=== PATIENT | female | born 1975 | race African-American/Black ===

== ENCOUNTER 2019-05-25 01:11 | Inpatient (IN) ==
[2019-05-25] MEDS ORDERED: MORPHINE IV ONE ×2 (01:26→04:17)
[2019-05-25 03:01] LABS: BASO# 0.01 X1000 (0.0-0.2); BASO% 0.1 % (0.0-0.8); EOS# 0.09 X1000 (0.0-0.7); EOS% 1.1 % (0.0-10.0); HEMATOCRIT 23.2 % (37.0-47.0); HEMOGLOBIN 7.1 g/dL (12.0-16.0); IMM GRAN# 0.02 X1000 (0.0-0.04); IMM GRAN% 0.2 % (0.0-0.5); LYMPH# 1.47 X1000 (1.2-3.4); LYMPH% 17.3 % (20.5-51.1); MCHC 30.6 g/dL (33-37); MCV 68.6 FL (81-99); MONO# 0.81 X1000 (0.11-0.59); MONO% 9.5 % (1.7-9.3); NEUT# 6.09 X1000 (1.4-6.5); NEUT% 71.8 % (42.2-75.2); PLT 412 X1000 (130-400); RBC 3.38 XMIL (4.2-5.4); RDW 18.3 % (11.5-14.5); WBC 8.49 X1000 (4.8-10.8)
[2019-05-25 03:22] LABS: AGAP 14; ALB/GLOB RATIO 0.7; ALBUMIN 3.2 g/dL (3.5-5.0); ALKALINE PHOSPHATASE 67 U/L (32-104); BUN 8 mg/dL (8-22); CALCIUM 8.8 mg/dL (8.8-10.2); CHLORIDE 103 mmol/L (98-107); COSMO 276; CREATININE 0.6 mg/dL (0.5-0.9); ESTIMATED GFR > 60; GLUCOSE 97 mg/dL (70-104); GOT 15 U/L (10-30); GPT 10 U/L (10-36); POTASSIUM 3.4 mmol/L (3.5-5.1); SODIUM 139 mmol/L (136-145); TCO2 22 mmol/L (25-35); TOTAL BILIRUBIN 0.32 mg/dL (0.20-1.00); TOTAL PROTEIN 7.5 g/dL (6.3-8.3)
[2019-05-25] MEDS ORDERED: ZOFRAN IV ONE (04:17)
--- NOTE | 2019-05-25 06:49 | PROVIDER DOCUMENTATION ---
This chart was entered by Mckayla Ohcoa Scribe, acting as scribe for Robert Lemon MD. HPI-General Adult - General Chief Complaint: Extremity Pain Stated Complaint: leg pain Time Seen by Provider: 05/25/19 01:16 Source: patient Allergies/Adverse Reactions: Patient Allergies Allergy/AdvReac Type Severity Reaction Status Date / Time acetaminophen [From Tylenol] Allergy ITCHING Verified 11/09/17 21:54 Home Medications: Home Medication List Medication Instructions Recorded Confirmed Last Taken Type Phenazopyridine HCl [Pyridium] 200 mg PO TID #6 tab 10/26/17 Unknown Rx Sulfamethoxazole/Trimethoprim 1 ea PO BID #14 tab 10/26/17 Unknown Rx [Bactrim Ds Tablet] Tramadol HCl [Ultram] 50 mg PO Q6H PRN PRN #10 tab 10/26/17 Unknown Rx Ciprofloxacin HCl [Cipro] 500 mg PO BID #14 tab 11/09/17 Unknown Rx Hydromorphone HCl [Dilaudid] 4 mg PO Q6H PRN PRN #10 tab 01/12/19 Unknown Rx - History of Present Illness -Gen Adult Nature of Presenting Problems: Pt is 44/F presenting to ED via EMS. Pt sts that her L side, specifically low back and hip/thigh started hurting about 1.5 hrs ago and hasn't stopped. Pt has hx of DVT and sts that in December she had that same and it felt similar, but that it hurts worse this time. Pt just had to stop her blood thinners in order to get biopsy. Pt is currently in remission from cervical cancer. Location of Pain/Injury: reports: lower extremity, lower body Pain Radiation: reports: no radiation Quality of Pain: reports: aching Severity: reports: moderate Onset/Duration: reports: 1 hour ago Timing: reports: still present Context/Activities at Onset: reports: none Modifying Factors: improves with: nothing Associated Symptoms: reports: trouble walking. denies: back/neck pain, nausea, shortness of breath, vomiting Similar Symptoms Previously?: Yes Recently seen or treated by another doctor?: No Review of Systems - Adult - REVIEW OF SYSTEMS - ADULT Constitutional: reports: no symptoms reported. denies: chills, fever Eyes: reports: no symptoms reported Ears, Nose, Mouth & Throat: reports: no symptoms reported Cardiovascular: reports: no symptoms reported. denies: chest pain Respiratory: reports: no symptoms reported Gastrointestinal: reports: no symptoms reported. denies: abdominal pain, nausea, vomiting Genitourinary: reports: no symptoms reported Musculoskeletal: denies: back pain Integumentary: reports: see HPI Neurological: reports: no symptoms reported. denies: dizziness/vertigo, headache/migraines Psychiatric: reports: no symptoms reported Endocrine: reports: no symptoms reported Hematologic/Lymphatic: reports: no symptoms reported Allergic/Immunologic: reports: no symptoms reported All Other Systems: Reviewed and Negative Past History - Adult - PAST MEDICAL HISTORY-ADULT Review of Records: reports: Old Records Reviewed, Nursing Assessment Review, Medications Reviewed, Social history reviewed & non-contributory. Major Childhood Illnesses: reports: denies history Cardiovascular: reports: denies history Respiratory: reports: denies history Gastrointestinal: reports: denies history Obstetrical/Gynecological: reports: other (cervical) Genitourinary: reports: denies history Musculoskeletal: reports: denies history Neurological: reports: denies history Endocrine/Immune: reports: Diabetes Other Conditions: reports: denies history - PRIOR SURGERIES/PROCEDURES Surgical/Procedure History: reports: BTL, breast, back/neck - IMMUNIZATION STATUS Childhood Immunizations: See Nurse Assessment Flu Vaccine: See Nurse Assessment - FAMILY HISTORY Family History: reviewed, not pertinent - SOCIAL HISTORY Smoking: denies, non-smoker Provider spent 3-5 mins advising pt. on dangers of tobacco.: Discussed manners to quit use, and f/u contacts for add'l counseling. Substance Use: marijuana Alcohol Use Frequency: never Living Situation: family Physical Exam-General - PHYSICAL EXAM-ADULT Initial Vital Signs Reviewed: Yes - CONSTITUTIONAL General Appearance: appears well, alert, moderate distress - EYES Eyes: PERRL/EOMI, pink conjunctivae - HEAD, EARS, NOSE, MOUTH & THROAT HENMT: normocephalic/atraumatic, moist mucous membranes, normal ENT inspection, TMs normal, pharynx normal - NECK Neck: supple - RESPIRATORY Respiratory: lungs clear - CARDIOVASCULAR Cardiovascular: regular rate, rhythm - GASTROINTESTINAL (ABDOMEN) Abdominal Exam: non tender, soft - LYMPHATIC Lymphatic: no adenopathy - MUSCULOSKELETAL Back Exam: normal inspection Extremity: normal range of motion, non-tender, normal gait - SKIN Integumentary: normal color, warm/dry - NEUROLOGIC Neurologic: grossly normal - PSYCHIATRIC Psych/Mental Status: normal mood/affect, normal thought content, normal thought process, oriented x 3 Progress - PLAN OF CARE/RESULTS Progress/Plan/Lab Results: Orders Category Date Time Status CBC WITH ELECTRONIC DIFF [HEME] Stat Lab 05/25/19 01:26 Uncollected COMPREHENSIVE METABOLIC PANEL [CHEM] Stat Lab 05/25/19 01:26 Uncollected D-DIMER [COAG] Stat Lab 05/25/19 01:26 Uncollected Morphine Med 05/25/19 01:26 Discontinued 4 mg IV NOW ONE US show bilateral DVT in femoral veins, pt was recently switched from xarelto to lovenox for a biopsy on Sunday, will admit for IVC filter and pt to continue lovenox and then switch back to xarelto after procedure, spoke with family me mitzy team at [facility] that works with pt's pcp and they had no further recommendations, spoke with Dr. Hassan and hospitalist will admit Result Diagrams: 05/25/19 02:36 05/25/19 02:36 Departure - Departure Date of Disposition Decision: 05/25/19 Time of Disposition Decision: 06:49 DIAGNOSIS: Acute bilateral deep vein thrombosis (DVT) of femoral veins Disposition: ADMITTED INPATIENT 09 Certified Medical Emergency: Emergent Condition: Stable - Critical Care Note This patient required my direct & personal management of CC.: No Attestation - Physician/ GLENNY Attestation Patient care was provided by Advanced Practice Provider:: No The physician spent face to face time with patient:: Yes Advanced Practice Provider documentation review:: Supervising physician onsite and consulted in the evaluation and care of this patient. The physician did have a face to face encounter with the patient. This chart was documented by the indicated scribe, (Mckayla Ochoa, Justin) and accurately reflects the services I performed and decisions made by me, Robert Lemon MD, as attested by the provider's signature.
[2019-05-25] MEDS ORDERED: DILAUDID IV ONE (08:15)
[2019-05-25] MEDS ORDERED: HEPARIN 25,000 UNIT in NS 250 ML IV SCH (08:45)
[2019-05-25] MEDS: DILAUDID IV PRN ×4 (09:07→20:06)
[2019-05-25] MEDS: ZOFRAN IV PRN ×3 (09:16→20:28)
[2019-05-25] MEDS ORDERED: HEPARIN IV ONE (09:42)
--- NOTE | 2019-05-25 10:01 | HISTORY AND PHYSICAL ---
PRIMARY CARE PROVIDER: Dr. Weir. ONCOLOGIST: Dr. Leyda Valderrama GENERAL SURGEON: Dr. Magy Oden. CHIEF COMPLAINT: Extremity pain. HISTORY OF PRESENT ILLNESS: Ms. Lee is a 44-year-old female who carries a past medical history of cervical cancer, who has gone through chemotherapy and radiation. Her last chemo was in 03/2018, and radiation in 08/2018. She has been in remission since 12/10/2018. She reports that she developed a blood clot back in January in her left extremity. She was initially placed on Eliquis, then switched to Xarelto. This past Sunday, she was switched to subcutaneous Lovenox because she was to have a cervical biopsy on Sunday at [facility]. However, she developed acute right lower extremity pain, and came to the ED to be evaluated. plant technician was called in that showed bilateral DVTs. My physicians called Dr. Fabricio Pelaez, the on- call service consult, about the patient's biopsy. They recommended that the patient be put in for IVC filters. They did speak with the Family Medicine team at [facility] that works with the patient's PCP. They had no further recommendations. I spoke with Dr. Fabricio Ayers on the phone. We will place her on a heparin drip for now, and he will come in and evaluate her imaging to see if she does actually need IVC filters. PAST MEDICAL HISTORY: 1. Cervical cancer, in remission since 11/2018. 2. Left lower extremity DVT, on Xarelto. PAST SURGICAL HISTORY: 1. Tubal ligation. 2. Breast biopsy. 3. Neck surgery. SOCIAL HISTORY: She quit smoking 11 years ago. Denies any alcohol, marijuana, or illicit drug use. She lives with family. FAMILY HISTORY: Colon cancer in aunt and uncle. Lung cancer in aunt. Breast cancer in mother. Denied any coronary artery disease or diabetes. ALLERGIES: She used to have an allergy to acetaminophen. She states, however, after the chemotherapy, she is no longer allergic to acetaminophen, and takes Tylenol regularly. HOME MEDICATIONS: Have not been verified. However, the patient states that she takes oxycodone at home, Lovenox, and [id number] Tylenol. PHYSICAL EXAMINATION: VITAL SIGNS: Temperature 99.2 degrees, heart rate 102, respirations 19, blood pressure 100/65, O2 is 100% on 2 L. GENERAL: Ms. Lee is a 44-year-old female who is sitting up on the bed, complaining of back pain and needing to use the bed du. HEENT: Atraumatic, normocephalic. PERRL. NECK: Supple. Trachea midline. CARDIOVASCULAR: S1, S2 appreciated. No murmurs, gallops, rubs noted. RESPIRATORY: Lung sounds are clear bilaterally. GASTROINTESTINAL: Soft, nontender, nondistended. Positive bowel sounds x4 quadrants. NEUROLOGIC: No focal deficits noted. LABORATORY DATA: White count 8, hemoglobin and hematocrit 7 and 23, platelet count is 412,000. D- dimer 0.83. Sodium 139, potassium 3.4, BUN 8, creatinine 0.6, blood glucose is 97. DIAGNOSTICS: Unofficial report for bilateral venous lower extremity Dopplers show acute bilateral femoral DVTs. ASSESSMENT AND PLAN: 1. Acute bilateral femoral deep venous thromboses. The patient has a known history of a left femoral deep venous thrombosis, on Xarelto, recently taken off and started on Lovenox to have a cervical biopsy on Sunday. Emergency Department physician spoke with [facility]. They did not have any further recommendations. General Surgery was contacted, Dr. Fabricio Ayers, to put in inferior vena cava filters. In the interim, we will place her on a heparin drip, and he will come in and assess her imaging. 2. Cervical cancer, per patient report, in remission. Her last chemotherapy was 03/2018. Last radiation was 08/2018. Been in remission since 12/10/2018. Her oncologist is Dr. Leyda Valderrama at [facility]. 3. Further recommendation to follow physician evaluation, laboratory and diagnostic data. Dictated by BAN Bee for Juan Guerrero MD cc: MD Itzel Lion MD [facility] CENTERJacquelyn
[2019-05-25] MEDS: NS 1,000 ML IV SCH ×2 (10:02→18:00)
[2019-05-25] MEDS: HEPARIN 25,000 UNITS/D5W 25,000 UNIT/250 ML IV.SOLN IV SCH (10:03)
[2019-05-25 11:15] LABS: INR 1.3; PROTIME 16.4 Seconds (11.0-16.0)
[2019-05-25 11:27] LABS: PTT 193.6 Seconds (22.3-41.8)
--- NOTE | 2019-05-25 14:26 | GENERAL SURGERY CONSULTATION ---
DATE: 05/25/2019 HISTORY OF PRESENT ILLNESS: This is a 44-year-old female with a history of cervical cancer treated with definitive radiation therapy in August. In January of this year, she was diagnosed with bilateral lower extremity DVT, was treated with Eliquis, and for some reason, was switched to Xarelto. This was subsequently transitioned to Lovenox over the last week, with plans for a cervical biopsy this week. The history is somewhat unclear. Most of these records are in [place] but there was a consult placed for an inferior vena cava filter in [place]. However, this was canceled, apparently out of lack of necessity. She developed some left flank pain radiating to her leg and came back where a venous ultrasound showed bilateral lower extremity DVT. It is unclear if this is propagated or significantly changed from previous as we do not have a comparison. She denies any chest pain or shortness of breath. MEDICAL HISTORY: Significant for cervical cancer. SURGICAL HISTORY: She has had a port placement. SOCIAL HISTORY: No tobacco, alcohol, or drugs. FAMILY HISTORY: Reviewed and noncontributory. REVIEW OF SYSTEMS: Ten point review of systems negative other than HPI. MEDICATIONS: Currently Lovenox but recently, Xarelto and, in the past, Eliquis. PHYSICAL EXAMINATION: Vital Signs: She is afebrile, pulse 89, blood pressure 105/71, oxygen saturation is 97% on room air. General: She is alert, in no acute distress. HEENT: There is no scleral icterus. No cervical mass. Cardiovascular: Normal rate. Pulmonary: No increased work of breathing. Abdomen: Soft. Integument: Warm and dry. Psychiatric: Appropriate affect. Neurologic: No gross deficits. Peripheral Vascular: No lower extremity edema. Her feet are well perfused. She has a right-sided port in her upper extremity. LABORATORY DATA: White count is 8, hematocrit is 23, platelets 412,000. Creatinine is 0.6. LFTs are normal. ASSESSMENT AND PLAN: A 44-year-old female with cervical cancer and associated deep venous thrombosis. She is on a heparin drip now. I would continue this until we are able to obtain her records but currently, I do not see any indication for an inferior vena cava filter. I think the best case scenario would be to continue on a heparin drip periprocedural for a cervical biopsy and then transition back to her oral medications. We will need to discuss. All these plans were being arranged in [place]. It may be best for her to go there for continuity of care but in the meantime, we will continue heparin infusion. I spoke with the patient about this. She is in agreement. cc: Itzel Ayers MD MTDD
[2019-05-25] MEDS ORDERED: TYLENOL PO PRN (16:27)
[2019-05-25] MEDS ORDERED: OXY IR PO PRN (16:27)
--- NOTE | 2019-05-25 17:17 | HISTORY AND PHYSICAL ---
HISTORY: The patient came in with bilateral swelling. She has a history of cervical cancer, which is reportedly possibly reactivated. They discussed with her doctors at [facility]. Although it is documented that they talked to Family Medicine team at [facility] when she is clearly an oncology patient. I am not sure why they talk to Family Medicine. That did not seem may be an appropriate transfer, because they called the wrong person and the patient was not accepted to the appropriate service. In any case, she was admitted here for evaluation for an IVC filter, because she has DVTs on anticoagulation. She is going to get a biopsy. I do not know. It was a very unclear. PHYSICAL EXAMINATION: On exam, she does have swelling. It does appear she has anemia. She has pale conjunctivae. Regular rate and rhythm. PROBLEM LIST: 1. Deep venous thrombosis. She is on heparin until we can decide if filter is required or not. She does have persistent hematuria by report, so filter may be in order. She most likely will need anticoagulation. 2. Anemia, possibly associated with blood loss. We will most likely transfuse. Her hemoglobin and hematocrit are 7 and 23. We will check basic labs and evaluate her intra-abdominal for stent patency and if there is a reason for hematuria. I do agree with Andria that she would best be served in the service that would be more appropriate for her. I hope that is not the case that they called the wrong service, because that would have been a waste of time. We will continue to follow. I will touch base with her primary oncologist tomorrow. I do not think she is consulting marine engineer today, and we will go from there. cc: MD PUNEET Lion
[2019-05-25 17:53] LABS: RETIC% 2.62 % (0.8-2.1); RETIC-HE 17.7 PG (28.2-36.6)
[2019-05-25 17:55] LABS: HEMATOCRIT 23.7 % (37.0-47.0)
--- NOTE | 2019-05-25 18:05 | Diag Imaging Result Doc PS360 ---
EXAM: CT RENAL STONE SEARCH - 05/25/2019 HISTORY: mireya TECHNIQUE: CT renal stone search without contrast COMPARISON: 10/26/2017 CT renal stone search, 01/12/2019 CT pelvis FINDINGS: There are bilateral double pigtail ureteral stents which extends from the respective renal pelves to the urinary bladder. There is hydronephrosis on the left. There is no substantial hydronephrosis on the right. There is soft tissue fullness in the pelvis, some of which apparently relates to bilateral iliac adenopathy. There is rectal wall thickening and/or perirectal soft tissue thickening. There is approximately 5.4 x 2.9 cm oval fluid collection in or beneath the left iliac is muscle, which does not contain any gas. There is no evidence of bowel obstruction. There is a moderate amount retained fecal debris in the colon. There is no free air. IMPRESSION: Bilateral double pigtail ureteral stents extending from the respective renal pelves to the urinary bladder. Hydronephrosis on the left. Soft tissue fullness in pelvis, some of which may relate to bilateral iliac adenopathy. Fluid in or beneath the left iliac is muscle, without associated gas. Rectal wall thickening and/or perirectal soft tissue thickening. This exam was performed using automated exposure control, adjustment of mA or kV according to patient size, and/or use of iterative reconstruction technique. Electronically signed by Radhames Marie 05/25/2019 6:03 PM
[2019-05-25 18:32] LABS: FERRITIN 493 ng/mL (13-150)
[2019-05-25 18:43] LABS: IRON SATURATION 6 %; TIBC 154 ug/dL; TOTAL IRON 10 ug/dL (49-151); UNBOUND IRON 144 ug/dL (112-346)
[2019-05-25 19:51] LABS: URINE SOURCE CLEAN CATCH
[2019-05-25 19:54] LABS: BILIRUBIN URINE NEGATIVE (NEGATIVE); BLOOD URINE MODERATE (NEGATIVE); COLOR YELLOW; GLUCOSE URINE NEGATIVE (NEGATIVE); KETONE URINE NEGATIVE (NEGATIVE); LEUKOCYTES URINE MODERATE (NEGATIVE); NITRITE URINE NEGATIVE (NEGATIVE); PROTEIN URINE 30 mg/dL (NEGATIVE); TURBIDITY URINE HAZY (CLEAR); UROBILINOGEN URINE NORMAL (NORMAL)
[2019-05-25 19:56] LABS: UR EPITHELIAL CELLS <10 /HPF (<10); URINE BACTERIA NEGATIVE /HPF; URINE RBC TNTC /HPF (<10); URINE WBC 20-40 /HPF (<10)
[2019-05-25] MEDS: MS CONTIN PO SCH (20:07)
[2019-05-26] MEDS ORDERED: HEPARIN IV ONE (00:25)
[2019-05-26] MEDS: DILAUDID IV PRN ×6 (00:33→18:32)
[2019-05-26] MEDS: NS 1,000 ML IV SCH ×3 (00:49→18:28)
[2019-05-26] MEDS: ZOFRAN IV PRN ×4 (03:56→15:30)
[2019-05-26 07:31] LABS: BASO# 0.02 X1000 (0.0-0.2); BASO% 0.3 % (0.0-0.8); EOS# 0.15 X1000 (0.0-0.7); HEMOGLOBIN 6.8 g/dL (12.0-16.0); LYMPH# 1.78 X1000 (1.2-3.4); LYMPH% 23.5 % (20.5-51.1); MCH 20.9 PG (27-31); MCHC 29.6 g/dL (33-37); MCV 70.6 FL (81-99); MONO# 0.74 X1000 (0.11-0.59); MONO% 9.8 % (1.7-9.3); MPV 10.3 FL (7.4-10.4); NEUT# 4.89 X1000 (1.4-6.5); NEUT% 64.4 % (42.2-75.2); PLT 404 X1000 (130-400); RBC 3.26 XMIL (4.2-5.4); RDW 18.7 % (11.5-14.5); WBC 7.58 X1000 (4.8-10.8)
[2019-05-26 07:47] LABS: AGAP 12; ALB/GLOB RATIO 0.6; ALBUMIN 2.7 g/dL (3.5-5.0); ALKALINE PHOSPHATASE 71 U/L (32-104); BUN 8 mg/dL (8-22); CALCIUM 8.7 mg/dL (8.8-10.2); CHLORIDE 103 mmol/L (98-107); COSMO 270; CREATININE 0.8 mg/dL (0.5-0.9); ESTIMATED GFR > 60; GLUCOSE 97 mg/dL (70-104); GOT 18 U/L (10-30); GPT 11 U/L (10-36); POTASSIUM 3.6 mmol/L (3.5-5.1); SODIUM 136 mmol/L (136-145); TCO2 21 mmol/L (25-35); TOTAL BILIRUBIN 0.21 mg/dL (0.20-1.00); TOTAL PROTEIN 7.1 g/dL (6.3-8.3)
[2019-05-26 07:59] LABS: ANISOCYTOSIS 1+; BANDS 1 % (0-1); EOS 3 % (1-10); HYPOCHROM 1+; LYMPHS 18 % (21-51); MONO 10 % (1-9); POIKILOCYTOSIS 1+; SEGS 68 % (42-75)
[2019-05-26] MEDS: MS CONTIN PO SCH (08:22)
[2019-05-26] MEDS ORDERED: BENADRYL PO ONE (10:05)
[2019-05-26] MEDS ORDERED: NS 500 ML IV ONE (10:05)
[2019-05-26] MEDS ORDERED: TYLENOL PO ONE (10:05)
[2019-05-26] MEDS: HEPARIN 25,000 UNITS/D5W 25,000 UNIT/250 ML IV.SOLN IV SCH (10:27)
--- NOTE | 2019-05-26 14:10 | PROGRESS NOTE ---
DATE: 05/26/2019 SUBJECTIVE: The patient is doing okay. OBJECTIVE: Vital Signs: Blood pressure is 100/69, heart rate of 9, respiratory rate is 17, temperature is 98.6 degrees. Cardiovascular: Regular rate and rhythm. Pulmonary: Bilateral breath sounds. Clear to auscultation. GI: Soft, nontender, nondistended. Bowel sounds are positive. LABORATORY DATA: White count 7, hemoglobin and hematocrit is 6.8 and 23, platelets 404,000. Basic was normal. PROBLEM LIST: 1. Bilateral DVTs. I think this is a change from baseline. She is on a heparin drip. At this point, General Surgery does not feel clear indication for IVC filter. We will continue to monitor. If she is having bleeding associated with anticoagulation she may have to, but again all her care is achieved through [place], somehow she could not be transferred there from the ER. 2. Anemia. H H is progressively lowered. I am going to go ahead and transfuse her a unit and we will follow closely. 3. History of cervical cancer with most likely recurrence. I discussed the case with Dr. Valderrama her primary gynecological oncologist that she is pretty much convinced that her disease has returned or spread. The biopsy is to confirm this. I am going to go ahead and CT her with contrast. We discussed doing that and then a PE study now, and she has been accepted in transfer with Dr. Leyda Valderrama's service once a bed is available, which a bed is not available at this moment, hopefully later today. We will continue to follow closely. cc: Juan Guerrero MD [facility]
--- NOTE | 2019-05-26 15:37 | Diag Imaging Result Doc PS360 ---
EXAM: CT ABD/PELVIS/PULM ARTERIES 05/26/2019 HISTORY: chest pain TECHNIQUE: This exam was performed using automated exposure control, adjustment of mA or kV according to patient size, and/or use of iterative reconstruction technique. COMMENT: Chest: 3-D MIPS were performed. The current study is compared with the previous examination of 06/26/2018. There are multiple low density nodules present in the left thyroid lobe which were apparently present previously. There are no filling defects in the pulmonary arteries. The aorta is normal in caliber without evidence of dissection. There is no evidence of abnormal fluid collections or significant adenopathy. There are a few scattered subpleural blebs bilaterally. There is no evidence of acute pulmonary parenchymal disease. The regional skeleton is intact. There has been no significant change in the appearance the chest since the previous study. ABDOMEN: The current study is compared with the noncontrast study of 05/25/2019. There is a tiny low-density lesion in the dome of the liver on image 13 which is probably a cyst. A similar lesion is present in the left lobe on image 29 and another on image 56 in the lower right lobe. The gallbladder is not distended. There is no evidence of biliary dilatation. The pancreas is unremarkable. The spleen is not enlarged. The adrenal glands are not enlarged. There are bilateral ureteral stents in the kidneys. There is hydronephrosis bilaterally particularly on the left. There is delayed contrast excretion on the left despite the presence of the stent. The possibility of pyelonephritis cannot be excluded with respect to the left kidney. There is some perinephric fluid. There is a fair amount of stool in the colon. The small bowel is not distended. The aorta is not distended. There is no evidence of significant adenopathy in the abdomen. Pelvis: There is an apparent periosteal reaction on the anterior aspect of the iliac wing on the left associated with a fluid collection deep to the iliacus muscle measuring 6 x 2.7 cm in the axial plane. This is not significantly changed from the previous study. Both ureteral stents terminate in the urinary bladder. There is edema in the perirectal fat generally. There appear to be distended vascular structures in the uterus and broad ligament bilaterally. There is apparent compression of the iliac veins bilaterally by amorphous soft tissue density in the area of the external iliac vessels bilaterally. The fluid collection deep to the iliacus continues caudally along the iliac bone to about the level of the mid femoral head. There is subcutaneous edema present anteriorly over the pelvis. There is an apparent fracture of the transverse process of L5 on the left. This was also present previously. There may be a fracture through the left side of the body of L5. This is oriented in a sagittal plane. IMPRESSION: 1. Bilateral hydronephrosis despite the presence of ureteral stents. Delayed contrast excretion on the left may be result of hydronephrosis or possibly coexisting pyelonephritis. 2. No evidence of pulmonary emboli or acute abnormality in the chest. 3. Fluid collection in the left iliac fossa which may be result of hematoma formation or abscess. Fracture of L5 as described. 4. Possible bilateral external iliac adenopathy with compression of both external iliac veins. The possibility of neoplastic involvement in the perirectal fat cannot be excluded. Electronically signed by Mauricio Ron 05/26/2019 3:34 PM
[2019-05-26 16:40] VITALS: BP 104/73
--- NOTE | 2019-05-27 10:47 | DISCHARGE SUMMARY ---
ADMISSION DATE: 05/25/2019 DISCHARGE DATE: 05/26/2019 DISCHARGE DIAGNOSES: 1. Likely recurrent cervical cancer. 2. Bilateral ureteral strictures with stent placement due to presumably cervical cancer. 3. Bilateral deep venous thrombosis failing therapy with Xarelto and Lovenox. 4. Anemia associated with chronic blood loss. HOSPITAL COURSE: The patient came in with extremity pain. She had a DVT and she was switched from Eliquis to Xarelto. In anticipation of a cervical biopsy she was switched from Xarelto to Lovenox. However, [facility] would not accept in transfer and recommend an IVC filter and admission here. She was placed on heparin. Dr. Ayers here did not feel she had acute indication for IVC filter at this time and that she really needed to go back to her primary doctors. We did do a renal CT which showed bilateral hydronephrosis and ureteral stents. She may have some pyelonephritis. Fluid collection in the left iliac fossa may be hematoma or abscess. Bilateral external iliac adenopathy causing external iliac veins, which is consistent with her bilateral DVTs, which was noted on exam. She has been on anticoagulation. She did not have fever or white count so we did not initiate anti any antibiotic. She is iron deficient. I discussed the case with her primary doctor Leyda Valderrama at [facility] and she agreed to take her in transfer when bed was available. There was no PE noted on her CT scan. Again, there was the other finding. She may need antibiotics at this point to cover for possible UTI. We did give her 1 unit of blood prior to transfer because her hemoglobin and hematocrit was 6 and 23. Further care will be physicians at [facility] Medical Center Manager/Onc service. cc: Juan Guerrero MD
--- NOTE | 2019-05-28 08:12 | Extremity Venous Study ---
PROCEDURE NAME: Venous U/S Left Leg - 05/25/2019 PROCEDURE PERFORMED: Left lower extremity venous duplex study. REQUEST PHYSICIAN: Dr. Robert Lemon. READING PHYSICIAN: Dr. Arenas. AUDIOLOGY TECHNICIAN: Jose A. INDICATION: Left leg pain and swelling. COMPARISON STUDY: Dated 01/27/2019. FINDINGS: The left common femoral vein was imaged and found to have thrombus. It was noncompressible. There appeared to be some flow preserved. The left deep femoral, superficial femoral, greater saphenous, popliteal, posterior tibial, and peroneal veins were imaged and are compressible and patent without thrombus. The right common femoral vein was also visualized and felt to have thrombus and no compressibility. INTERPRETATION: Bilateral common femoral vein DVT. These are likely acute and either occlusive or nearly occlusive. Compared to the prior study on 01/27/2019, this is a significant change with new DVTs appreciated as described above. cc: Stephon Arenas MD
== END 2019-05-26 18:48 | disposition short-term general hospital (02) | DRG 300 ==
LOC: ED 01:11 → 2N 08:28
PROVIDERS: ATTEND Internal Medicine

== ENCOUNTER 2019-05-28 17:59 | Observation (INO) ==
--- NOTE | 2019-05-28 19:11 | PROVIDER DOCUMENTATION ---
HPI-General Adult - General Chief Complaint: Edema Stated Complaint: LEGS SWELLING Time Seen by Provider: 05/28/19 18:23 Source: patient Allergies/Adverse Reactions: Patient Allergies Allergy/AdvReac Type Severity Reaction Status Date / Time No Known Allergies Allergy Verified 05/26/19 10:19 Home Medications: Home Medication List Medication Instructions Recorded Confirmed Last Taken Type Enoxaparin [Lovenox] 05/25/19 05/25/19 Unknown History Morphine Sulfate [Morphine Sulfate 1 tab PO BID 05/25/19 05/25/19 Unknown History ER] Oxycodone HCl 2 tab PO Q4H PRN 05/25/19 05/25/19 Unknown History Rivaroxaban [Xarelto] 1 tab PO DAILY 05/25/19 05/25/19 Unknown History - History of Present Illness -Gen Adult Nature of Presenting Problems: This is a 44yo with PMH of cervical cancer s/p bx in [facility] with discharge yesterday who present with CC of LE swelling and pain. Per review of the patient records the patient w Location of Pain/Injury: reports: chest, lower body Pain Radiation: reports: other (hip) Severity: reports: moderate Onset/Duration: reports: unsure, 3 days ago (reported over the past few days) Timing: reports: still present Context/Activities at Onset: reports: other (reports being off blood thinners for procedure) Associated Symptoms: reports: chest pain, shortness of breath Review of Systems - Adult - REVIEW OF SYSTEMS - ADULT Constitutional: denies: fever Eyes: denies: blurred vision Cardiovascular: reports: chest pain, edema Respiratory: reports: shortness of breath Gastrointestinal: reports: nausea Genitourinary: denies: hematuria Musculoskeletal: reports: other (bilateral LE pain) Integumentary: denies: rash Neurological: reports: other (light-headedness) Hematologic/Lymphatic: reports: blood clots Past History - Adult - PAST MEDICAL HISTORY-ADULT Review of Records: reports: Old Records Reviewed, Nursing Assessment Review Major Childhood Illnesses: reports: denies history Cardiovascular: reports: denies history Respiratory: reports: denies history Gastrointestinal: reports: denies history Obstetrical/Gynecological: reports: other (cervical) Genitourinary: reports: cancer (metastatic cervical cancer) Musculoskeletal: reports: chronic pain (chronic back pain) Neurological: reports: denies history Endocrine/Immune: reports: Diabetes Other Conditions: reports: denies history - PRIOR SURGERIES/PROCEDURES Surgical/Procedure History: reports: BTL, breast, back/neck, other (cancer biopsy, kidney stents) - IMMUNIZATION STATUS Childhood Immunizations: See Nurse Assessment Flu Vaccine: See Nurse Assessment - FAMILY HISTORY Family History: cancer (colon and breast cancer) - SOCIAL HISTORY Smoking: quit greater than 1 year Substance Use: none/never Alcohol Use Frequency: never Physical Exam-General - CONSTITUTIONAL General Appearance: appears well, alert - HEAD, EARS, NOSE, MOUTH & THROAT HENMT: normocephalic/atraumatic, moist mucous membranes - NECK Neck: non-tender - RESPIRATORY Respiratory: lungs clear - CARDIOVASCULAR Cardiovascular: no murmur, tachycardia, other (trace LE edema noted on the RLE) - GASTROINTESTINAL (ABDOMEN) Abdominal Exam: non tender - MUSCULOSKELETAL Extremity: tenderness, other (tenderness with palpation of lower extremities bi laterally.) - SKIN Integumentary: normal color, warm/dry - NEUROLOGIC Neurologic: grossly normal - PSYCHIATRIC Psych/Mental Status: normal mood/affect Progress - PLAN OF CARE/RESULTS Progress/Plan/Lab Results: Vital Signs - 8 hr 05/28/19 18:15 Temperature 97.4 F L Pulse Rate 113 H Respiratory Rate 20 Blood Pressure 116/70 O2 Sat by Pulse Oximetry 100 Orders Category Date Time Status CBC WITH ELECTRONIC DIFF [HEME] Stat Lab 05/28/19 19:00 Uncollected COMPREHENSIVE METABOLIC PANEL [CHEM] Stat Lab 05/28/19 19:00 Uncollected URINALYSIS W/POSS RFLX CULT [URINALYSIS] Stat Lab 05/28/19 19:00 Uncollected Result Diagrams: 05/28/19 19:28 05/28/19 19:28 Departure - Departure Date of Disposition Decision: 05/28/19 Time of Disposition Decision: 22:59 DIAGNOSIS: Metastasis from cervical cancer DVT (deep venous thrombosis) Qualifiers: DVT location: lower extremity Affected thrombotic vein of extremity: femoral Chronicity: acute Laterality: bilateral Qualified Code(s): I82.413 - Acute embolism and thrombosis of femoral vein, bilateral Disposition: ADMITTED INPATIENT 09 Certified Medical Emergency: Emergent Condition: Fair Referrals and Follow-Ups: Pieter Weir MD [Primary Care Provider] - - Critical Care Note This patient required my direct & personal management of CC.: No Attestation - Physician/ GLENNY Attestation Patient care was provided by Advanced Practice Provider:: No The physician spent face to face time with patient:: Yes Advanced Practice Provider documentation review:: Supervising physician onsite and consulted in the evaluation and care of this patient. The physician did have a face to face encounter with the patient.
[2019-05-28] MEDS ORDERED: MORPHINE IV ONE ×2 (19:53→22:29)
[2019-05-28 20:00] LABS: AGAP 13; ALB/GLOB RATIO 0.7; ALBUMIN 3.1 g/dL (3.5-5.0); ALKALINE PHOSPHATASE 87 U/L (32-104); BUN 8 mg/dL (8-22); CALCIUM 9.7 mg/dL (8.8-10.2); CHLORIDE 100 mmol/L (98-107); COSMO 274; CREATININE 0.8 mg/dL (0.5-0.9); ESTIMATED GFR > 60; GLUCOSE 105 mg/dL (70-104); GOT 24 U/L (10-30); GPT 18 U/L (10-36); POTASSIUM 3.7 mmol/L (3.5-5.1); SODIUM 138 mmol/L (136-145); TCO2 25 mmol/L (25-35); TOTAL BILIRUBIN 0.28 mg/dL (0.20-1.00); TOTAL PROTEIN 7.8 g/dL (6.3-8.3)
[2019-05-28 20:05] LABS: BASO# 0.01 X1000 (0.0-0.2); BASO% 0.1 % (0.0-0.8); EOS# 0.06 X1000 (0.0-0.7); EOS% 0.7 % (0.0-10.0); HEMATOCRIT 25.9 % (37.0-47.0); LYMPH# 1.22 X1000 (1.2-3.4); LYMPH% 13.6 % (20.5-51.1); MCH 21.9 PG (27-31); MCHC 30.9 g/dL (33-37); MCV 70.8 FL (81-99); MONO# 0.89 X1000 (0.11-0.59); MPV 10.6 FL (7.4-10.4); NEUT# 6.76 X1000 (1.4-6.5); NEUT% 75.6 % (42.2-75.2); PLT 409 X1000 (130-400); RBC 3.66 XMIL (4.2-5.4); RDW 19.1 % (11.5-14.5); WBC 8.94 X1000 (4.8-10.8)
[2019-05-28 20:24] LABS: URINE SOURCE CLEAN CATCH
[2019-05-28 20:31] LABS: BILIRUBIN URINE NEGATIVE (NEGATIVE); BLOOD URINE MODERATE (NEGATIVE); COLOR YELLOW; GLUCOSE URINE NEGATIVE (NEGATIVE); KETONE URINE TRACE mg/dL (NEGATIVE); LEUKOCYTES URINE LARGE (NEGATIVE); NITRITE URINE NEGATIVE (NEGATIVE); PROTEIN URINE 100 mg/dL (NEGATIVE); SP GRAVITY URINE 1.021; TURBIDITY URINE HAZY (CLEAR); UROBILINOGEN URINE NORMAL (NORMAL)
[2019-05-28 20:32] LABS: UR EPITHELIAL CELLS <10 /HPF (<10); URINE BACTERIA NEGATIVE /HPF; URINE RBC TNTC /HPF (<10); URINE WBC TNTC /HPF (<10)
--- NOTE | 2019-05-28 21:01 | Diag Imaging Result Doc PS360 ---
EXAM: CT ANGIOGRM PULMONARY ARTERIES HISTORY: concern for PE TECHNIQUE: CT chest with intravenous contrast. Pulmonary arterial protocol with MIP images. COMPARISON: 05/26/2019 FINDINGS: there is still normal opacification of the pulmonary arteries and their major branches. There have been no changes since the prior exam. IMPRESSION: No pulmonary emboli. This exam was performed using automated exposure control, adjustment of mA or kV according to patient size, and/or use of iterative reconstruction technique. Electronically signed by Ayaz Grover 05/28/2019 8:59 PM
[2019-05-28] MEDS ORDERED: ZOFRAN IV ONE (22:41)
[2019-05-28] MEDS ORDERED: ZOFRAN ONE (22:45)
[2019-05-29] MEDS ORDERED: MARINOL PO PRN (01:09)
[2019-05-29] MEDS: OXY IR PO PRN ×5 (01:57→20:25)
[2019-05-29] MEDS: LOVENOX SUBQ SCH ×2 (02:17→14:54)
--- NOTE | 2019-05-29 02:56 | HISTORY AND PHYSICAL ---
PRIMARY CARE PHYSICIAN: Unknown. CHIEF COMPLAINT: DVT, could not get medicines. HISTORY OF PRESENTING ILLNESS: A 44-year-old female with a history of squamous cell carcinoma of the cervix, and recently diagnosed with right DVT. Was at [facility] for a biopsy of a pelvic mass. Apparently, she was discharged with Lovenox, however, she states that she could not get the Lovenox and her leg was swelling, and subsequently she had come to the emergency department. In the ED, she was evaluated, and due to her presenting symptoms and the patient unable to get medications, it was thought that she would require admission for further management. At the time of my examination, she complained of right lower extremity pain. She denied any fever, chills, chest pain, shortness of breath or any weight changes. PAST MEDICAL HISTORY: Includes squamous cell carcinoma of the cervix, a right DVT. PAST SURGICAL HISTORY: Had ureteral stents. ALLERGIES: No known drug allergies. CURRENT MEDICATIONS: Include tramadol 50 mg p.o. q.6 hours, Lovenox 60 mg subcutaneous q.12 hours, morphine 50 mg p.o. q.12 hours, oxycodone 10 mg p.o. q.4 hours. SOCIAL HISTORY: No history of smoking, alcohol, or illicit drug use. FAMILY HISTORY: No history of coronary artery disease. REVIEW OF SYSTEMS: Fourteen-point review of system as listed in HPI. Other systems negative. PHYSICAL EXAMINATION: GENERAL: Cooperative, friendly female. She is resting more comfortably now. VITAL SIGNS: Temperature 98.6 degrees, pulse 93, respirations 20, blood pressure 140/67. HEENT: Atraumatic, normocephalic. Extraocular movements intact. PERRLA. NECK: No masses. CHEST: Clear to auscultation. CARDIOVASCULAR: Regular rate and rhythm. ABDOMEN: Soft, positive bowel sounds. EXTREMITIES: Right lower extremity edema. NEUROLOGIC: She is awake, alert, oriented x3. GENITOURINARY: No bladder distention. SKIN: Warm. LABORATORIES AND STUDIES: WBCs 8.94, hemoglobin 8.0, hematocrit 25.9, platelets 409,000. Sodium 138, potassium 3.7, chloride 100, CO2 of 25, BUN is 8, creatinine 2.8. Glucose 105. UA shows large leukocytes. Pulmonary angiogram is negative for PE. ASSESSMENT: A 44-year-old female with a history of squamous cell carcinoma of cervix, right deep venous thrombosis, and a pelvic mass, was recently at [facility] for a biopsy of the mass. She was, apparently, discharged on Lovenox for deep venous thrombosis. However, she could not obtain it due to insurance reasons, she states. Due to her presenting symptoms, edema of the leg, and intractable pain, it was thought that we will place her for observation for further evaluation and management. 1. Right lower extremity deep venous thrombosis. 2. Intractable pain. 3. Suspected metastatic disease. 4. Possible urinary tract infection. PLAN: 1. We will admit patient to medical floor with telemetry. 2. We will start patient on Lovenox. 3. We will consult social service to help with assistance of her medications. 4. We will check urine cultures. Start patient on empiric antibiotics. 5. We will continue to follow and reassess, make further recommendation based on patient's clinical course. cc: Sanjiv Zuniga MD
[2019-05-29] MEDS: ROCEPHIN 1 GM in NS 50 ML IV SCH (05:32)
[2019-05-29] MEDS: MS CONTIN PO SCH ×2 (10:58→20:25)
[2019-05-29] MEDS: BIOTIN PO SCH (11:18)
--- NOTE | 2019-05-29 13:42 | PROGRESS NOTE ---
DATE: 05/29/2019 SUBJECTIVE: This morning Ms. Shante Lee refers to be doing okay. Still has some swelling in the lower extremities, but she feels a lot better. OBJECTIVE: Vital signs: Blood pressure 93/60, pulse of 87, respiration is 18, temperature is 98.5 degrees. General: Ms. Lee is a 44-year-old female. She is in bed in no distress. HEENT: Mucosa is pink and moist. Anicteric. Acyanotic. Neck: Supple. Chest: Good air entry bilaterally. No crepitations. No rhonchi. Cardiovascular: Regular rate and rhythm. Abdomen: Soft, minimally tender in the lower abdomen. Bowel sounds present. Extremities: There is bilateral swelling on the upper thighs, but no pedal edema. PIN CLEANER: Patient is awake, alert and oriented. LABORATORY DATA: Hemoglobin is 8.0. Chemistry is also reviewed, unremarkable. X-RAY DATA: A CTA of the lungs yesterday was negative for PE. ASSESSMENT: 1. Bilateral common femoral vein deep vein thromboses associated with thigh swelling. We think there is an underlying malignancy. Patient is currently on Lovenox. 2. History of intractable pain. We will continue with pain management. 3. Suspected recurrent cervical cancer with metastases causing the iliac vein and femoral vein stasis. 4. Bilateral ureteral stents with hydronephrosis with pathological urine concerning for urinary tract infection. Patient is on antimicrobial therapy. PLAN: So, in general, Ms. Lee has been to her regular oncologist, Dr. Leyda Bell in [facility]. A biopsy was done about 4 days ago and she was sent home. I understand that she could not get her Lovenox and she started becoming more symptomatic. That is why she came to the emergency room and she was admitted. She is currently on therapeutic Lovenox. She seems to be doing better. We will get social work to look into getting her Lovenox, and hopefully when that is arranged we can get her discharged. cc: Claudio Proctor MD
[2019-05-29] MEDS ORDERED: DILAUDID IV ONE (14:30)
[2019-05-30] MEDS: LOVENOX SUBQ SCH (00:24)
[2019-05-30] MEDS: OXY IR PO PRN ×2 (00:24→11:03)
[2019-05-30] MEDS: DILAUDID IV PRN ×2 (03:09→08:17)
[2019-05-30] MEDS: ROCEPHIN 1 GM in NS 50 ML IV SCH (03:13)
[2019-05-30 07:38] LABS: BASO# 0.01 X1000 (0.0-0.2); BASO% 0.1 % (0.0-0.8); EOS# 0.14 X1000 (0.0-0.7); EOS% 1.7 % (0.0-10.0); HEMOGLOBIN 7.7 g/dL (12.0-16.0); LYMPH# 1.67 X1000 (1.2-3.4); LYMPH% 20.6 % (20.5-51.1); MCH 21.9 PG (27-31); MCHC 30.8 g/dL (33-37); MONO# 1.09 X1000 (0.11-0.59); MONO% 13.4 % (1.7-9.3); MPV 10.7 FL (7.4-10.4); NEUT% 64.2 % (42.2-75.2); PLT 444 X1000 (130-400); RBC 3.52 XMIL (4.2-5.4); RDW 19.4 % (11.5-14.5); WBC 8.11 X1000 (4.8-10.8)
[2019-05-30 07:57] LABS: AGAP 11; BUN 6 mg/dL (8-22); CALCIUM 9.7 mg/dL (8.8-10.2); CHLORIDE 98 mmol/L (98-107); COSMO 269; CREATININE 0.9 mg/dL (0.5-0.9); ESTIMATED GFR > 60; GLUCOSE 91 mg/dL (70-104); POTASSIUM 3.4 mmol/L (3.5-5.1); SODIUM 136 mmol/L (136-145); TCO2 27 mmol/L (25-35)
[2019-05-30] MEDS: BIOTIN PO SCH (08:30)
[2019-05-30 09:11] VITALS: BP 111/70
--- NOTE | 2019-05-30 19:23 | DISCHARGE SUMMARY ---
ADMISSION DATE: 05/29/2019 DISCHARGE DATE: 05/30/2019 DISPOSITION: Home. FOLLOWUP: 1. Dr. Thien Weir. 2. Dr. Leyda Bell in [facility]. 3. Dr. Regalado in [place]. CONSULTATION DURING THIS ADMISSION: None. IMAGING STUDIES OF SIGNIFICANCE: A CTA of the lung showed no pulmonary emboli. ADMISSION DIAGNOSES: 1. Right lower extremity deep venous thrombosis. 2. Intractable pain. 3. Suspected metastatic disease. 4. Urinary tract infection. DIAGNOSES AT THE TIME OF DISCHARGE: 1. Bilateral common femoral vein deep vein thrombosis associated with thigh swelling. 2. Intractable pelvis pain. 3. Suspected recurrent cervical cancer with metastasis causing iliac vein and femoral vein compression with stasis. 4. Bilateral ureteral stents with hydronephrosis. 5. Suspected urinary tract infection. 6. Microcytic anemia due to iron deficiency and anemia of chronic disease. DISCHARGE MEDICATIONS: 1. Dronabinol 5 mg p.o. q four hours p.r.n. 2. Lovenox 60 mg subcutaneously q 12 hours. 3. Morphine 15 mg p.o. q 12 hours. 4. Biotin. 5. Oxycodone 10 mg p.o. daily. 6. Levaquin 500 p.o. daily for seven days. PRESENTING COMPLAINT: Could not get medicine. HISTORY OF PRESENT COMPLAINT: Ms. Lee is a 44-year-old female who is known to have cervical cancer about a year ago. She underwent chemotherapy and radiation therapy in [place] with Dr. Regalado. Subsequently, Ms. Lee referred that she was told that everything was gone. Ms. Lee, unfortunately started developing some lower extremity swelling and pain in her pelvic area. She was seen on two different occasions in [place] and was advised that there seems to have recurrence of disease, but she was in denial. She requested higher level of care, so apparently she was sent to [facility] where she was also evaluated by Dr. Leyda Bell and apparently she was offered some investigational therapy, according to her, but she was not very convinced. Ms. Lee was admitted to [facility] just a little bit over a week ago. She was transferred to [facility] at that time. According to her she was seen for just about a day or two and was sent home on Lovenox. Unfortunately, according to Ms Lee, when she went to pickup driver her medications, they were not there and because she was hurting she came to the emergency room and she was readmitted. During the hospital course, she was placed back on Lovenox. deli worker was consulted. The patient's pharmacy was called and it was found out that her medication was actually in the pharmacy, been there for the past two days. Ms Lee was advised. Review of her imaging studies with her and I did advise her that it certainly does look like her cancer has came back and that she would need to follow up with her physicians in [facility] and get the disease under control and until that is done she is going to continue having these issues with DVTs in her pelvic region causing her swelling in her thighs. She seems to understand. Ms Lee is clinically stable for discharge. She is going to be on Lovenox as indicated. Pain medication was also prescribed for her since she alleged that the oxycodone was not in the pharmacy for her. This morning, her vitals are blood pressure 110/70, pulse 93, respirations 20, temperature 99.1. Ms. Lee is stable for discharge. All of the discharge instructions have been discussed with her. Specifically, we stressed the need for her to follow up with her oncologist at [facility] and also to have an open mind with the possibility that she would need to go under some form of chemotherapy or some adjuvant therapy because of the recurrence of her disease. TIME SPENT FOR DISCHARGE: 35 minutes. cc: Claudio Proctor MD
== END 2019-05-30 12:21 | disposition home or self-care (01) ==
LOC: ED 17:59 → 3N 17:59 → SUATTDRO 05-29 01:30
PROVIDERS: ATTEND Internal Medicine